=== PATIENT | female | born 1995 | race Caucasian/White ===

== ENCOUNTER 2020-10-25 17:53 | Emergency (ER) | payer BC ==
[2020-10-25 17:57] VITALS: TEMP 98.7
[2020-10-25 18:32] LABS: Appearance,Urine Clear (Clear); Bacteria,Urine Many /hpf; Bilirubin,Urine Negative (Negative); Blood,Urine Large (Negative); Color,Urine Colorless; Glucose,Urine (UA) Negative (Negative); Ketones,Urine Negative (Negative); Leukocyte Esterase,Urine Negative (Negative); Nitrite,Urine Negative (Negative); PH, Urine 6.5 (5.0-8.0); Protein,Urine Negative (Negative); RBC,Urine 2 /hpf (0-5); Specific Gravity,Urine 1.002 (1.001-1.035); Squamous Epithelial Cell,Urine 1 /hpf (0-4); Urobilinogen,Urine <2.0 mg/dL (<2.0); WBC,Urine 1 /hpf (0-5)
[2020-10-25 18:38] LABS: Basophils % (A) 0 %; Eosinophils # (A) 0.1 k/uL (0-0.7); Eosinophils % (A) 1 %; HCT 39.1 % (34.0-46.0); HGB 13.1 gm/dL (11.4-16.0); Lymphocytes # (A) 2.2 k/uL (1.0-4.8); Lymphocytes % (A) 22 %; MCH 29.1 pg (25.0-35.0); MCHC 33.4 g/dL (31.0-37.0); MCV 86.9 fL (80.0-100.0); Mean Platelet Volume 6.8; Monocytes # (A) 0.3 k/uL (0-1.0); Monocytes % (A) 3 %; Neutrophils # (A) 7.4 k/uL (1.3-7.7); Neutrophils % (A) 73 %; Platelet Count 352 k/uL (150-450); WBC 10.1 k/uL (3.8-10.6)
[2020-10-25 18:47] LABS: ALT 14 U/L (4-34); AST 21 U/L (14-36); African American GFR (CKD) >90 (>60 ml/min/1.73 sqM); Albumin 4.6 g/dL (3.5-5.0); Alkaline Phosphatase 80 U/L (38-126); Anion Gap 9 mmol/L; Blood Urea Nitrogen 7 mg/dL (7-17); Calcium 10.1 mg/dL (8.4-10.2); Carbon Dioxide 24 mmol/L (22-30); Chloride 104 mmol/L (98-107); Glucose 124 mg/dL (74-99); Non-African American GFR(CKD) >90 (>60 ml/min/1.73 sqM); Potassium 3.5 mmol/L (3.5-5.1); Sodium 137 mmol/L (137-145); Total Bilirubin 0.3 mg/dL (0.2-1.3); Total Protein 7.6 g/dL (6.3-8.2)
--- NOTE | 2020-10-25 19:25 | ED ---
Female Urogenital HPI - General Chief complaint: Vaginal Bleeding Stated complaint: 8wks preg, bleeding Time Seen by Provider: 10/25/20 18:01 Source: patient Mode of arrival: ambulatory Limitations: no limitations - History of Present Illness Initial comments: Patient is a 25-year-old female presenting to the emergency Department with complaints of vaginal bleeding that started today while she was at work. She states she went to the restroom before leaving work and noticed blood on a panty liner, when she went home she states the pain on her was full. Patient states she put on a pad, called her TECHNICAL SPEC who recommended coming into the ER. This is patient's first . She denies any abdominal pain, some very mild nausea but no vomiting or diarrhea, no fevers or chills. She denies history of abdominal surgeries. Her TECHNICAL SPEC is Dr. Garcia. Patient has no further complaints at this time. - Related Data Allergies Allergy/AdvReac Type Severity Reaction Status Date / Time No Known Allergies Allergy Verified 10/25/20 17:57 Review of Systems ROS Statement: Those systems with pertinent positive or pertinent negative responses have been documented in the HPI. ROS Other: All systems not noted in ROS Statement are negative. Past Medical History Past Medical History: No Reported History History of Any Multi-Drug Resistant Organisms: None Reported Past Surgical History: Cholecystectomy Past Psychological History: No Psychological Hx Reported Smoking Status: Never smoker Past Alcohol Use History: None Reported Past Drug Use History: None Reported General Exam - General Exam Comments Initial Comments: GENERAL: Patient is well-developed and well-nourished. Patient is nontoxic and in no acute distress. HEAD: Atraumatic, normocephalic. EYES: Pupils equal round and reactive to light, extraocular movements intact, sclera anicteric, conjunctiva are normal. Eyelids were unremarkable. ENT: TMs normal, nares patent, oropharynx clear without exudates. Moist mucous membranes. NECK: Normal range of motion, supple without lymphadenopathy or JVD. LUNGS: Unlabored respirations. Breath sounds clear to auscultation bilaterally and equal. No wheezes rales or rhonchi. HEART: Regular rate and rhythm without murmurs, rubs or gallops. ABDOMEN: Soft, nontender, normoactive bowel sounds. No guarding, no rebound. No masses appreciated. MUSCULOSKELETAL: Normal extremities with adequate strength and normal range of motion, no pitting or edema. No clubbing or cyanosis. NEUROLOGICAL: Patient is alert and oriented x 3. Motor and sensory are also intact. Cranial nerves II through XII grossly intact. Symmetrical smile. Normal speech, normal gait. PSYCH: Normal mood, normal affect. SKIN: Warm, Dry, normal turgor, no rashes or lesions noted. Limitations: no limitations External exam: Present: normal external exam Speculum exam: Present: vaginal bleeding (mild) By manual exam: Present: normal by manual exam Course Vital Signs 10/25/20 10/25/20 10/25/20 17:55 19:29 21:09 Temperature 98.7 F 98.7 F Pulse Rate 126 H 96 96 Respiratory 20 18 18 Rate Blood Pressure 120/73 114/67 114/67 O2 Sat by Pulse 97 100 100 Oximetry Medical Decision Making - Medical Decision Making Patient is a 25-year-old female here currently 8 weeks , presenting for vaginal bleeding that started this morning. Her TECHNICAL SPEC is Dr. Garcia. This is her first . She has no abdominal pain. Labs are normal, hCG Quant is 125,000. Ultrasound today shows a single live IUP with estimated age of 7 weeks and 2 days, heart rate is 142. There are 2 small subchorionic bleed adjacent to the gestational sac. Patient's blood type is O+. I discussed these findings with the patient. She is stable for discharge. She does have a follow-up with her TECHNICAL SPEC's office tomorrow. Return parameters were discussed with the patient she verbalized understanding. Case discussed with Dr. Loredo. - Lab Data Result diagrams: 10/25/20 18:22 10/25/20 18:22 Lab Results 10/25/20 10/25/20 10/25/20 Range/Units 18:22 18:22 18: WBC 10.1 (3.8-10.6) k/uL RBC 4.50 (3.80-5.40) m/uL Hgb 13.1 (11.4-16.0) gm/dL Hct 39.1 (34.0-46.0) % MCV 86.9 (80.0-100.0) fL MCH 29.1 (25.0-35.0) pg MCHC 33.4 (31.0-37.0) g/dL RDW 13.0 (11.5-15.5) % Plt Count 352 (150-450) k/uL MPV 6.8 Neutrophils % 73 % Lymphocytes % 22 % Monocytes % 3 % Eosinophils % 1 % Basophils % 0 % Neutrophils # 7.4 (1.3-7.7) k/uL Lymphocytes # 2.2 (1.0-4.8) k/uL Monocytes # 0.3 (0-1.0) k/uL Eosinophils # 0.1 (0-0.7) k/uL Basophils # 0.0 (0-0.2) k/uL Sodium 137 (137-145) mmol/L Potassium 3.5 (3.5-5.1) mmol/L Chloride 104 (98-107) mmol/L Carbon Dioxide 24 (22-30) mmol/L Anion Gap 9 mmol/L BUN 7 (7-17) mg/dL Creatinine 0.50 L (0.52-1.04) mg/dL Est GFR (CKD-EPI)AfAm >90 (>60 ml/min/1.73 sqM) Est GFR (CKD-EPI)NonAf >90 (>60 ml/min/1.73 sqM) Glucose 124 H (74-99) mg/dL Calcium 10.1 (8.4-10.2) mg/dL Total Bilirubin 0.3 (0.2-1.3) mg/dL AST 21 (14-36) U/L ALT 14 (4-34) U/L Alkaline Phosphatase 80 (38-126) U/L Total Protein 7.6 (6.3-8.2) g/dL Albumin 4.6 (3.5-5.0) g/dL HCG, Quant 077284.0 mIU/mL Urine Color Colorless Urine Appearance Clear (Clear) Urine pH 6.5 (5.0-8.0) Ur Specific [place] 1.002 (1.001-1.035) Urine Protein Negative (Negative) Urine Glucose (UA) Negative (Negative) Urine Ketones Negative (Negative) Urine Blood Large H (Negative) Urine Nitrite Negative (Negative) Urine Bilirubin Negative (Negative) Urine Urobilinogen <2.0 (<2.0) mg/dL Ur Leukocyte Esterase Negative (Negative) Urine RBC 2 (0-5) /hpf Urine WBC 1 (0-5) /hpf Ur Squamous Epith Cells 1 (0-4) /hpf Urine Bacteria Many H (None) /hpf Blood Type Blood Type Recheck Bld Type Recheck Status 10/25/20 Range/Units 18:22 WBC (3.8-10.6) k/uL RBC (3.80-5.40) m/uL Hgb (11.4-16.0) gm/dL Hct (34.0-46.0) % MCV (80.0-100.0) fL MCH (25.0-35.0) pg MCHC (31.0-37.0) g/dL RDW (11.5-15.5) % Plt Count (150-450) k/uL MPV Neutrophils % % Lymphocytes % % Monocytes % % Eosinophils % % Basophils % % Neutrophils # (1.3-7.7) k/uL Lymphocytes # (1.0-4.8) k/uL Monocytes # (0-1.0) k/uL Eosinophils # (0-0.7) k/uL Basophils # (0-0.2) k/uL Sodium (137-145) mmol/L Potassium (3.5-5.1) mmol/L Chloride (98-107) mmol/L Carbon Dioxide (22-30) mmol/L Anion Gap mmol/L BUN (7-17) mg/dL Creatinine (0.52-1.04) mg/dL Est GFR (CKD-EPI)AfAm (>60 ml/min/1.73 sqM) Est GFR (CKD-EPI)NonAf (>60 ml/min/1.73 sqM) Glucose (74-99) mg/dL Calcium (8.4-10.2) mg/dL Total Bilirubin (0.2-1.3) mg/dL AST (14-36) U/L ALT (4-34) U/L Alkaline Phosphatase (38-126) U/L Total Protein (6.3-8.2) g/dL Albumin (3.5-5.0) g/dL HCG, Quant mIU/mL Urine Color Urine Appearance (Clear) Urine pH (5.0-8.0) Ur Specific [place] (1.001-1.035) Urine Protein (Negative) Urine Glucose (UA) (Negative) Urine Ketones (Negative) Urine Blood (Negative) Urine Nitrite (Negative) Urine Bilirubin (Negative) Urine Urobilinogen (<2.0) mg/dL Ur Leukocyte Esterase (Negative) Urine RBC (0-5) /hpf Urine WBC (0-5) /hpf Ur Squamous Epith Cells (0-4) /hpf Urine Bacteria (None) /hpf Blood Type O Positive Blood Type Recheck No Previous Record Bld Type Recheck Status [facility] ONLY Disposition Clinical Impression: Vaginal bleeding during , Subchorionic hemorrhage in first trimester Disposition: HOME SELF-CARE Condition: Stable Instructions (If sedation given, give patient instructions): Subchorionic Hemorrhage (ED) Additional Instructions: Please return to the Emergency Department if symptoms worsen or any other concerns. Follow-up with your TECHNICAL SPEC as discussed. Is patient prescribed a controlled substance at d/c from ED?: No Referrals: Yulia Sin MD [Primary Care Provider] - 1-2 days Nathalia Garcia MD [STAFF PHYSICIAN] - 1-2 days Time of Disposition: 20:48
[2020-10-25 19:32] VITALS: BP 114/67; PULSE 96; RESP 18
--- NOTE | 2020-10-25 19:56 | US ---
EXAMINATION TYPE: Transabdominal DATE OF EXAM: 10/25/2020 7:31 PM COMPARISON: NONE CLINICAL HISTORY: vaginal bleeding, 8 wks preg. Vaginal bleeding x 4.5 hours. . EXAM PERFORMED: Transvaginal (TV) and Transabdominal (TA) EXAM MEASUREMENTS: GESTATIONAL AGE / DATING Physician Established: Not yet established. Dates by LMP: ( 7 weeks/4 days) EDC: 06/09/2021 Dates by First Scan: This is first scan. Dates by Current Scan for: (7 weeks/2 days) EDC: 06/11/2021 MATERNAL ANATOMY Uterus: 8.3 x 7.7 x 4.9 cm. Subcentimeter anechoic areas seen in cervix. Right Ovary: 3.6 x 2.0 x 1.8 cm. Left Ovary: 3.8 x 2.3 x 2.0 cm. Area of mixed echogenicity and peripheral vascularity seen: 2.3 x 1.9 x 1.7, may relate to corpus luteal cyst Post CDS / Adnexa: Anechoic area seen adjacent to or connected to the right ovary: 1.2 x 1.0 x 1.2 cm . Presence of free fluid: None seen. Presence of corpus luteal cyst: Probable within the left ovary as mentioned above. Presence of subchorionic bleed: -Two heterogeneous, hypoechoic areas measured right of the gestational sac. #1 measures: 2.3 x 1.5 x 2.1 cm. #2 measures: 0.9 x 0.7 x 0.8 cm. -Hypoechoic area seen more inferior, adjacent to the gestational sac: 1.5 x 0.4 x 0.4 cm. GESTATION / SURVEY CRL: 0.78 cm. (6 weeks/5 days) MSD: 3.00 cm. (7 weeks/6 days) Yolk Sac (normal less than 6mm): 3.1 mm. Heart Rate: 142 bpm Rhythm: Normal IUP: Viable IUP Date of LMP: 09/02/2020 Beta HcG (if available): Not available. *CRL measures 6w 5d, MSD measures 7w 6d. IMPRESSION: Single live intrauterine with estimated age of approximately 7 weeks 2 days. Small hypoechoic areas adjacent to the gestational sac, consistent with subchorionic hemorrhage.
== END 2020-10-25 21:10 | disposition home or self-care (01) ==
LOC: EC 17:53 → MERGE 17:53 → EC 21:10
DX: O20.8 Other hemorrhage in early pregnancy (principal); Z3A.08 8 weeks gestation of pregnancy; Z90.721 Acquired absence of ovaries, unilateral
CPT/HCPCS: 36415; 76801; 76817; 80053; 81001; 84702; 85025; 86900; 86901; 99284

== ENCOUNTER 2020-11-10 06:09 | Day surgery (SDC) | payer BC ==
[2020-11-09 11:26] VITALS: BMI 22.0
--- NOTE | 2020-11-09 16:35 | HP ---
HISTORY AND PHYSICAL DATE OF PROCEDURE: 11/10/2020. HISTORY: This is 25-year-old 1, para 0 woman with an LMP of 09/02/2020. She was found on recent pelvic ultrasound to have an intrauterine with no heart tones. She has had some episodes of bleeding and spotting and was previously diagnosed with a subchorionic bleed. She is scheduled to undergo suction dilation and curettage. ALLERGIES: None. MEDICATIONS: vitamin. PAST MEDICAL HISTORY: Migraine headaches. PAST SURGICAL HISTORY: Cholecystectomy 2017. 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 No history of abnormal Pap smears or STDs. FAMILY HISTORY: Significant for breast cancer in the grandmother. SOCIAL HISTORY: Negative for tobacco, alcohol, and drug use. She is . REVIEW OF SYSTEMS: Negative for fevers, chills, nausea, vomiting, abdominal pain, rash, headache, or visual changes. PHYSICAL EXAMINATION: Blood pressure 112/66, pulse 91, weight 145 pounds, height 5 feet 6 inches. Pelvic examination is deferred secondary to recent transvaginal ultrasound. This is a pleasant female in no acute distress. HEENT exam is unremarkable. Her breathing is nonlabored and lungs are clear to auscultation. Heart is of regular rate and rhythm. Abdomen is slim, soft and nontender. There is no rebound, no guarding and no flank pain. Pelvic exam is deferred. Neurologic exam is grossly intact. Mood and affect normal. ASSESSMENT: A 25-year-old 1, para 0 woman with LMP of 09/02/2020, who should be 9 weeks 4 days by dates to have a crown-rump length of 8 weeks 3 days with no heart tones consistent with missed . She is scheduled for suction dilation and curettage. The procedure has been reviewed with the patient in detail including anticipated hospital course and recovery time. Risks include, but are not limited to bleeding, infection, transfusion, uterine injury, retained products. Her blood type is pending. MMODL / IJN: [id number] /
[~2020-11-10 06:09] MED LIST: DEXAMETHASONE SOD PHOSPHATE 4 MG/ML 1 ML VIAL IV ONE; LACTATED RINGERS 1,000 ML IV SCH; MIDAZOLAM 2 MG/2 ML VIAL IV PRN; ONDANSETRON 4 MG/2 ML VIAL IVP ONE; Pre Op ABX Message 1 EACH MISC MISCELLANE ONE; SCOPOLAMINE 1.5MG/72HR PATCH TRANSDERM ONE
[2020-11-10] MEDS ORDERED: LIDOCAINE 1% (10MG/ML) FOR IV START INTRADERMA ONE (07:00)
[2020-11-10 07:04] LABS: HCT 37.7 % (34.0-46.0); HGB 13.5 gm/dL (11.4-16.0); MCHC 35.7 g/dL (31.0-37.0); MCV 86.7 fL (80.0-100.0); Mean Platelet Volume 6.9; Platelet Count 333 k/uL (150-450); RBC 4.35 m/uL (3.80-5.40); RDW 12.3 % (11.5-15.5); WBC 7.3 k/uL (3.8-10.6)
[2020-11-10] MEDS ORDERED: KETOROLAC 15 MG/ML 1 ML VIAL ONE (07:29)
[2020-11-10] MEDS ORDERED: PROPOFOL 10 MG/ML 20 ML VIAL IV ONE (07:29)
[2020-11-10] MEDS ORDERED: ONDANSETRON 4 MG/2 ML VIAL ONE (07:29)
[2020-11-10] MEDS ORDERED: MIDAZOLAM 2 MG/2 ML VIAL ONE (07:29)
[2020-11-10] MEDS ORDERED: LIDOCAINE 1% INJ 10MG/ML (20 ML MDV) ONE (07:29)
[2020-11-10] MEDS ORDERED: ePHEDrine SULFATE/0.9% NACL/PF 50 MG/5 ML SYRINGE IV ONE (07:29)
[2020-11-10] MEDS ORDERED: fentaNYL (PF) 50 MCG/ML 2 ML AMP ONE (07:29)
[2020-11-10] MEDS ORDERED: LIDOCAINE 1%-EPI 1:100,000 20 ML VIAL SQ ONE ×2 (07:47)
[2020-11-10] MEDS ORDERED: LACTATED RINGERS 1,000 ML IV ONE (08:34)
[2020-11-10 08:48] VITALS: TEMP 97
--- NOTE | 2020-11-10 08:48 | P.OP ---
Date of Procedure: 11/10/20 Preoperative Diagnosis: Missed Postoperative Diagnosis: Same Procedure(s) Performed: Ultrasound guided suction dilation and curettage Anesthesia: MAC Surgeon: Nathalia Garcia Estimated Blood Loss (ml): 50 IV fluids (ml): 1,000 Urine output (ml): 10 Pathology: other (Uterine contents) Condition: stable Disposition: PACU Indications for Procedure: Missed at approximately 8 weeks gestation Operative Findings: Small and stenotic cervix, severely anteverted uterus. Description of Procedure: After the patient was met in the preoperative holding area and all questions were answered, she was taken to the operating room where anesthetic was administered without incident. Appropriate timeout procedure was undertaken. Blood type O positive. The patient was positioned, prepped and draped in the dorsal high lithotomy position. The bladder was drained for a scant amount of clear urine. Exam under anesthetic was performed and the uterus was noted to be in the midline enlarged to approximately 8 weeks size. Weighted speculum was placed in the vagina and the cervix was noted to be very small and nulliparous in appearance. The cervix was not dilated. The cervix was grasped anteriorly with a single-tooth tenaculum and the uterus was not able to be sounded secondary to cervical stenosis. Very carefully using the smallest Amandeep Goff dilators the cervix is attempted to be dilated. Significant resistance was met at what I felt to be the internal os. On multiple careful efforts it did not feel as though the apices to proceed without further visualization. The shunt was contacted and conference center manager came to the bedside. Under direct ultrasound guidance the uterus was noted to be severely anteverted. It was not clear where the cervical canal was. The bladder was then backfilled with approximately 100 mL of sterile saline. This allowed visual and better visualization of the track of the cervical canal. Under direct visualization then the cervix was able to be sequentially dilated with confirmation of placement. The 8 curved banjo curet was then introduced again under direct ultrasound visualization and the uterus was circumferentially curettaged. Appropriate amount of tissue was obtained. The suction curet was removed and under direct visualization the sharp banjo curette was introduced and the uterus was further curettaged of the remaining tissue. The instruments were then removed from the uterus. The cervix was observed and no active bleeding was noted. Instruments removed from the vagina. Patient was awoken from anesthetic without incident. All counts reported to me as correct by the operating room staff. Patient was transported recovery area in good condition.
[2020-11-10 09:54] VITALS: BP 119/69; PULSE 99; RESP 18
--- NOTE | 2020-11-10 14:34 | US ---
EXAMINATION TYPE: US pelvic limited DATE OF EXAM: 11/10/2020 COMPARISON: 10/25/2020 CLINICAL HISTORY: POSSIBLE retained products of conception TECHNIQUE: Transabdominal (TA). Impression: Ultrasound was requested in OR to help physician guide instruments to complete D & C. [place] l time imaging was used with Dr Garcia present.
== END 2020-11-10 10:19 | disposition home or self-care (01) ==
LOC: OR 06:09
PROVIDERS: ATTEND Obstetrics & Gynecology
DX: O02.1 Missed abortion (principal); Z90.49 Acquired absence of other specified parts of digestive tract; Z80.3 Family history of malignant neoplasm of breast; G43.909 Migraine, unspecified, not intractable, without status migrainosus; Z79.899 Other long term (current) drug therapy
CPT/HCPCS: 86900; 86901; 88305; 85027; 86850; 59820; J2250; J1100; J2405; J2001; J3010; J1885; J2704; 76857

== ENCOUNTER 2020-12-07 19:13 | Emergency (ER) | payer BC ==
[2020-12-07] MEDS ORDERED: KETOROLAC 15 MG/ML 1 ML VIAL IVP STA (20:20)
[2020-12-07 20:27] VITALS: RESP 18
[2020-12-07 20:57] LABS: Basophils # (A) 0.1 k/uL (0-0.2); Basophils % (A) 1 %; Eosinophils # (A) 0.1 k/uL (0-0.7); Eosinophils % (A) 2 %; HCT 39.3 % (34.0-46.0); HGB 13.2 gm/dL (11.4-16.0); Lymphocytes # (A) 2.3 k/uL (1.0-4.8); Lymphocytes % (A) 29 %; MCH 29.8 pg (25.0-35.0); MCHC 33.7 g/dL (31.0-37.0); MCV 88.3 fL (80.0-100.0); Monocytes # (A) 0.4 k/uL (0-1.0); Monocytes % (A) 5 %; Neutrophils # (A) 4.9 k/uL (1.3-7.7); Neutrophils % (A) 62 %; Platelet Count 411 k/uL (150-450); RBC 4.45 m/uL (3.80-5.40); RDW 12.7 % (11.5-15.5); WBC 7.9 k/uL (3.8-10.6)
[2020-12-07 20:59] LABS: Appearance,Urine Clear (Clear); Bilirubin,Urine Negative (Negative); Blood,Urine Negative (Negative); Color,Urine Light Yellow; Glucose,Urine (UA) Negative (Negative); Ketones,Urine Negative (Negative); Leukocyte Esterase,Urine Negative (Negative); Nitrite,Urine Negative (Negative); PH, Urine 6.5 (5.0-8.0); Protein,Urine Negative (Negative); Specific Gravity,Urine 1.005 (1.001-1.035); Urobilinogen,Urine <2.0 mg/dL (<2.0)
[2020-12-07 21:07] LABS: Glucose 87 mg/dL (74-99)
[2020-12-07 21:09] LABS: ALT 28 U/L (4-34); AST 28 U/L (14-36); African American GFR (CKD) >90 (>60 ml/min/1.73 sqM); Albumin 4.5 g/dL (3.5-5.0); Alkaline Phosphatase 87 U/L (38-126); Blood Urea Nitrogen 9 mg/dL (7-17); Calcium 9.7 mg/dL (8.4-10.2); Carbon Dioxide 28 mmol/L (22-30); Non-African American GFR(CKD) >90 (>60 ml/min/1.73 sqM); Potassium 3.6 mmol/L (3.5-5.1); Sodium 139 mmol/L (137-145); Total Bilirubin 0.5 mg/dL (0.2-1.3); Total Protein 7.4 g/dL (6.3-8.2)
--- NOTE | 2020-12-07 21:12 | ED ---
Abdominal Pain HPI - General Chief Complaint: Abdominal Pain Stated Complaint: right side pelvic pain Time Seen by Provider: 12/07/20 20:04 Source: patient Mode of arrival: ambulatory - History of Present Illness Initial Comments: Patient is a healthy 25-year-old female presenting to the emergency Department with complaints of 2 days of severe right lower pelvic pain. Patient had a D&C performed 4 weeks ago, has been recovering well. She states her bleeding stopped 2 weeks ago. 4 days ago she had about 2-3 hours worth of severe right lower pelvic pain, cause her to double over, have extreme nausea and she was not able to do anything else. She states it did end up subsiding after using a heat pack. Patient states the next 3 days she had no symptoms until today. The same thing happened when she was sitting after dinner, had an extreme bout of right lower pelvic pain, is persisting for about 3 hours so she came in for evaluation. Patient denies any fevers or chills, she's been eating and drinking as normal throughout this past 4 days. She has not had any additional vaginal bleeding. She admits a history of cholecystectomy, and no other abdominal surgeries. She states her PAYROLL EXAMINER has been monitoring her hCG levels, this checked a few weeks ago and was still about 190 she thought. She denies any chest pain or short of breath, no dysuria. She has no further complaints at this time. Her vital signs are stable upon arrival. - Related Data Home Medications Medication Instructions Recorded Confirmed Pnv No.95/Ferrous Fum/Folic AC 1 each PO DAILY 11/09/20 11/10/20 [ Multivitamin Tablet] Allergies Allergy/AdvReac Type Severity Reaction Status Date / Time No Known Allergies Allergy Verified 12/07/20 19:42 Review of Systems ROS Statement: Those systems with pertinent positive or pertinent negative responses have been documented in the HPI. ROS Other: All systems not noted in ROS Statement are negative. Past Medical History Past Medical History: No Reported History Additional Past Medical History / Comment(s): missed AB History of Any Multi-Drug Resistant Organisms: None Reported Past Surgical History: Cholecystectomy Past Anesthesia/Blood Transfusion Reactions: Previous Problems w/ Anesthesia Additional Past Anesthesia/Blood Transfusion Reaction / Comment(s): hard time waking up Past Psychological History: No Psychological Hx Reported Smoking Status: Never smoker Past Alcohol Use History: Occasional Past Drug Use History: None Reported - Past Family History Mother Family Medical History: Unable to Obtain Additional Family Medical History / Comment(s): patient adopted General Exam - General Exam Comments Initial Comments: GENERAL: Patient is well-developed and well-nourished. Patient is nontoxic and in no acute distress. HEAD: Atraumatic, normocephalic. EYES: Pupils equal round and reactive to light, extraocular movements intact, sclera anicteric, conjunctiva are normal. Eyelids were unremarkable. ENT: TMs normal, nares patent, oropharynx clear without exudates. Moist mucous membranes. NECK: Normal range of motion, supple without lymphadenopathy or JVD. LUNGS: Unlabored respirations. Breath sounds clear to auscultation bilaterally and equal. No wheezes rales or rhonchi. HEART: Regular rate and rhythm without murmurs, rubs or gallops. ABDOMEN: Soft, tender to palpation of the right lower pelvic area, normoactive bowel sounds. No guarding, no rebound. No masses appreciated. : Deferred MUSCULOSKELETAL: Normal extremities with adequate strength and normal range of motion, no pitting or edema. No clubbing or cyanosis. NEUROLOGICAL: Patient is alert and oriented x 3. Motor and sensory are also intact. Cranial nerves II through XII grossly intact. Symmetrical smile. Normal speech, normal gait. PSYCH: Normal mood, normal affect. SKIN: Warm, Dry, normal turgor, no rashes or lesions noted. Course Vital Signs 12/07/20 12/07/20 12/07/20 19:37 20:17 22:20 Temperature 97.9 F 97.7 F Pulse Rate 96 91 76 Respiratory 15 18 18 Rate Blood Pressure 126/81 136/87 98/65 O2 Sat by Pulse 99 99 99 Oximetry Medical Decision Making - Medical Decision Making Patient is a 25-year-old female here for severe right lower pelvic pain that happened twice for the past 4 days. She had a D&C performed 4 weeks ago, she has had no vaginal bleeding for the last 2 weeks. She's been eating and drinking as normal. Her vital signs are stable today. She is tender of the right lower pelvic region. Labs revealed no acute process, beta hCG is 36.4 which is down from her last check. Ultrasound reveals a 2.5 cm mass in the uterus is probably a fibroid, tiny amount of free fluid in the pelvis, no evidence of ovarian torsion, irregular right ovarian cyst. Patient has been symptom free after some Toradol. She's been resting currently. Discussed these findings with the patient. I believe her symptoms could be from a small right ovarian cyst. I recommended following up with her PAYROLL EXAMINER tomorrow. She is stable for discharge and she is in agreement with this plan of care. Return parameters were discussed with this patient and she verbalized understanding. Case discussed with Dr. Loredo. - Lab Data Result diagrams: 12/07/20 20:46 12/07/20 20:46 Lab Results 12/07/20 12/07/20 12/07/20 Range/Units 20:46 20:46 20:46 WBC 7.9 (3.8-10.6) k/uL RBC 4.45 (3.80-5.40) m/uL Hgb 13.2 (11.4-16.0) gm/dL Hct 39.3 (34.0-46.0) % MCV 88.3 (80.0-100.0) fL MCH 29.8 (25.0-35.0) pg MCHC 33.7 (31.0-37.0) g/dL RDW 12.7 (11.5-15.5) % Plt Count 411 (150-450) k/uL MPV 7.0 Neutrophils % 62 % Lymphocytes % 29 % Monocytes % 5 % Eosinophils % 2 % Basophils % 1 % Neutrophils # 4.9 (1.3-7.7) k/uL Lymphocytes # 2.3 (1.0-4.8) k/uL Monocytes # 0.4 (0-1.0) k/uL Eosinophils # 0.1 (0-0.7) k/uL Basophils # 0.1 (0-0.2) k/uL Sodium 139 (137-145) mmol/L Potassium 3.6 (3.5-5.1) mmol/L Chloride 102 (98-107) mmol/L Carbon Dioxide 28 (22-30) mmol/L Anion Gap 9 mmol/L BUN 9 (7-17) mg/dL Creatinine 0.57 (0.52-1.04) mg/dL Est GFR (CKD-EPI)AfAm >90 (>60 ml/min/1.73 sqM) Est GFR (CKD-EPI)NonAf >90 (>60 ml/min/1.73 sqM) Glucose 87 (74-99) mg/dL Plasma Lactic Acid Jason (0.7-2.0) mmol/L Calcium 9.7 (8.4-10.2) mg/dL Total Bilirubin 0.5 (0.2-1.3) mg/dL AST 28 (14-36) U/L ALT 28 (4-34) U/L Alkaline Phosphatase 87 (38-126) U/L Total Protein 7.4 (6.3-8.2) g/dL Albumin 4.5 (3.5-5.0) g/dL HCG, Quant 36.5 mIU/mL Urine Color Light Yellow Urine Appearance Clear (Clear) Urine pH 6.5 (5.0-8.0) Ur Specific [place] 1.005 (1.001-1.035) Urine Protein Negative (Negative) Urine Glucose (UA) Negative (Negative) Urine Ketones Negative (Negative) Urine Blood Negative (Negative) Urine Nitrite Negative (Negative) Urine Bilirubin Negative (Negative) Urine Urobilinogen <2.0 (<2.0) mg/dL Ur Leukocyte Esterase Negative (Negative) 12/07/20 Range/Units 20:46 WBC (3.8-10.6) k/uL RBC (3.80-5.40) m/uL Hgb (11.4-16.0) gm/dL Hct (34.0-46.0) % MCV (80.0-100.0) fL MCH (25.0-35.0) pg MCHC (31.0-37.0) g/dL RDW (11.5-15.5) % Plt Count (150-450) k/uL MPV Neutrophils % % Lymphocytes % % Monocytes % % Eosinophils % % Basophils % % Neutrophils # (1.3-7.7) k/uL Lymphocytes # (1.0-4.8) k/uL Monocytes # (0-1.0) k/uL Eosinophils # (0-0.7) k/uL Basophils # (0-0.2) k/uL Sodium (137-145) mmol/L Potassium (3.5-5.1) mmol/L Chloride (98-107) mmol/L Carbon Dioxide (22-30) mmol/L Anion Gap mmol/L BUN (7-17) mg/dL Creatinine (0.52-1.04) mg/dL Est GFR (CKD-EPI)AfAm (>60 ml/min/1.73 sqM) Est GFR (CKD-EPI)NonAf (>60 ml/min/1.73 sqM) Glucose (74-99) mg/dL Plasma Lactic Acid Jason 1.2 (0.7-2.0) mmol/L Calcium (8.4-10.2) mg/dL Total Bilirubin (0.2-1.3) mg/dL AST (14-36) U/L ALT (4-34) U/L Alkaline Phosphatase (38-126) U/L Total Protein (6.3-8.2) g/dL Albumin (3.5-5.0) g/dL HCG, Quant mIU/mL Urine Color Urine Appearance (Clear) Urine pH (5.0-8.0) Ur Specific [place] (1.001-1.035) Urine Protein (Negative) Urine Glucose (UA) (Negative) Urine Ketones (Negative) Urine Blood (Negative) Urine Nitrite (Negative) Urine Bilirubin (Negative) Urine Urobilinogen (<2.0) mg/dL Ur Leukocyte Esterase (Negative) Disposition Clinical Impression: Right ovarian cyst, Pelvic pain Disposition: HOME SELF-CARE Condition: Stable Instructions (If sedation given, give patient instructions): Ovarian Cyst (ED) Additional Instructions: Please return to the Emergency Department if symptoms worsen or any other concerns. Recommend alternating between Tylenol and ibuprofen for discomfort. Please follow up with your PAYROLL EXAMINER as discussed. Is patient prescribed a controlled substance at d/c from ED?: No Referrals: Yulia Sin MD [Primary Care Provider] - 1-2 days Nathalia Garcia MD [STAFF PHYSICIAN] - 1-2 days Time of Disposition: 22:44
[2020-12-07 21:15] LABS: Anion Gap 9 mmol/L; Chloride 102 mmol/L (98-107)
[2020-12-07 21:24] LABS: HCG,Quantitative Serum 36.5 mIU/mL
--- NOTE | 2020-12-07 22:15 | US ---
EXAMINATION TYPE: US transvaginal DATE OF EXAM: 12/07/2020 COMPARISON: US CLINICAL HISTORY: Severe right lower pelvic pain. Severe lower pelvic pain x 4 days. Hx D&C 11/10/2020 . . TECHNIQUE: Transvaginal (TV). Date of LMP: 09/02/2020 EXAM MEASUREMENTS: Uterus: 8.3 x 7.1 x 3.4 cm Endometrial Stripe: 0.3 cm Right Ovary: 4.4 x 3.1 x 2.4 cm Left Ovary: 2.8 x 2.1 x 1.6 cm 1. Uterus: Anteverted Heterogeneous area seen toward the left: 3.0 x 2.2 x 1.5 cm. This could be wi thin the endometrium? Septated anechoic area seen in cervix: 0.8 x 0.7 x 0.3 cm. 2. Endometrium: 0.3 cm. 3. Right Ovary: Area of mixed echogenicity and peripheral vascularity seen: 3.0 x 2.0 x 1.9 cm. 4. Left Ovary: Follicles seen. -Arterial and venous flow seen within the ovaries. 5. Bilateral Adnexa: Anechoic area seen in right adnexa between right ovary and uterus: 2.0 x 1.2 x 1.1 cm. Free fluid seen in the left adnexa: 1.7 x 1.6 x 0.6 cm. 6. Posterior cul-de-sac: Appears to be wnl. IMPRESSION: 2.5 cm mass that is somewhat echogenic in the uterus that is probably a fibroid. Tiny amount of free fluid in the pelvis. No evidence of ovarian torsion. Irregular right ovarian cyst .
[2020-12-07 23:14] VITALS: BP 104/64; PULSE 70; TEMP 97.1
== END 2020-12-07 23:14 | disposition home or self-care (01) ==
LOC: EC 19:13
DX: N83.201 Unspecified ovarian cyst, right side (principal); Z90.49 Acquired absence of other specified parts of digestive tract
CPT/HCPCS: 96374 ×2; 99284 ×2; 36415; 80053; 83605; 85025; 81003; 84702; 93975; 76830; J1885

== ENCOUNTER 2021-08-08 21:23 | Outpatient (CLI) | payer BC ==
[2021-08-08 23:47] VITALS: BP 115/75; PULSE 92; RESP 16; TEMP 97.5
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
== END 2021-08-08 23:30 | disposition home or self-care (01) ==
LOC: FBPOP 21:23
PROVIDERS: ATTEND Obstetrics & Gynecology
DX: O9A.213 Injury, poisoning and certain other consequences of external causes complicating pregnancy, third trimester (principal); Z3A.30 30 weeks gestation of pregnancy; W00.0XXA Fall on same level due to ice and snow, initial encounter
CPT/HCPCS: 59025; 99213

== ENCOUNTER 2021-09-20 04:45 | Outpatient (CLI) | payer BC ==
[2021-09-20 06:27] VITALS: BP 126/83; PULSE 125; RESP 16; TEMP 97.3
--- NOTE | 2021-09-20 07:49 | P.MSEPDOC ---
Presenting Problems - Arrival Data Date of Arrival on Unit: 09/20/21 Time of Arrival on Unit: 04:45 Mode of Transport: Ambulatory - Complaint OB-Reason for Admission/Chief Complaint: Possible Onset of Labor Comment: pt. present to triage due to contractions that started at 1am, states. 5min apart, rating pain 6/10 Medical History - Information : 2 Para: 0 Term: 0 : 0 Abortions: Spontaneous or Elective: 1 Number of Living Children: 0 - Gestational Age Gestational Age by INDERJIT (wks/days): 36 Weeks and 4 Days - History Comment: Hx. of subchoronic hemorrage at 10 weeks and has resolved Review of Systems - Review of Systems Constitutional: No problems Breast: No problems ENT: No problems Cardiovascular: No problems Respiratory: No problems Gastrointestinal: No problems Genitourinary: No problems Musculoskeletal: No problems Neurological: No problems Skin: No problems Vital Signs - Temperature Temperature: 97.3 F Temperature Source: Temporal Artery Scan - Pulse Pulse Oximetery Pulse Rate: 125 Pulse Assessment Method: Automatic Cuff - Respirations Respiratory Rate: 16 Oxygen Delivery Method: Room Air O2 Sat by Pulse Oximetry: 99 - Blood Pressure Right Arm Blood Pressure: 126/83 Blood Pressure Mean: 97 Blood Pressure Source: Automatic Cuff Medical Screen Scoring - Cervical Exam Dilation (cm): 1.5 Effacement (%): 60 Station: -4 Membranes: Intact - Uterine Contractions Frequency From (mins): 3 Frequency To (mins): 60 Duration From (seconds): 40 Duration To (seconds): 50 Resting: Soft to palpation - Assessment - Baby A Baseline FHR: 135 Heart Rate - NICHD Category: Category I (Normal) NST: Reactive Physician Notification - Physician Notified Physician Notified Date: 09/20/21 Physician Notified Time: 06:04 Physician: Maryellen Luis Order Received: Yes - Notification Comment Comment: order to discharge patient home Maternal Triage Index - Maternal Triage Index Presenting for scheduled procedure w/no complaint: No - Stat/Priority 1 Stat Priority 1: No - Urgent/Priority 2 Urgent Priority 2: No - Prompt/Priority 3 Prompt Priority 3: Yes Criteria Met for Priority 3: pt. present to triage due to contractions that started at 1am, states. 5min apart, rating pain 6/10 Disposition - Disposition OB Disposition: Discharge to home Discharge Date: 09/20/21 Discharge Time: 06:12 I agree with the RN Medical Screening Exam: Yes Case reviewed; plan agreed upon as documented in EMR&OBIX.: Yes Diagnosis: FALSE LABOR BEFORE 37 COMPLETED WEEKS OF GEST, THIRD TRI
== END 2021-09-20 06:12 | disposition home or self-care (01) ==
LOC: FBPOP 04:45
PROVIDERS: ATTEND Obstetrics & Gynecology
DX: O47.03 False labor before 37 completed weeks of gestation, third trimester (principal); Z3A.36 36 weeks gestation of pregnancy
CPT/HCPCS: 59025; 99213

== ENCOUNTER 2021-09-22 01:15 | Inpatient (IN) | payer BC ==
[2021-09-22] MEDS ORDERED: TERBUTALINE 1 MG/ML VIAL SQ PRN (01:56)
[2021-09-22] MEDS ORDERED: LIDOCAINE 1% (PF) 10 MG/ML (30 ML SDV) SQ PRN (01:56)
[2021-09-22] MEDS ORDERED: METHYLERGONOVINE 0.2 MG/ML 1 ML AMP IM PRN (01:56)
[2021-09-22] MEDS ORDERED: OXYTOCIN 10 UNIT/ML 1 ML VIAL IM PRN (01:56)
[2021-09-22] MEDS ORDERED: CARBOPROST TROMETHAMINE 250 MCG/ML 1 ML AMP IM PRN (01:56)
[2021-09-22] MEDS ORDERED: LACTATED RINGERS 1,000 ML IV SCH (02:00)
[2021-09-22] MEDS ORDERED: OXYTOCIN 30 UNITS/500 ML NS 30 UNIT in SALINE 1 500ML.BAG IV SCH ×2 (02:00→03:00)
[2021-09-22 02:31] LABS: Basophils # (A) 0.1 k/uL (0-0.2); Basophils % (A) 0 %; Eosinophils % (A) 0 %; HCT 38.7 % (34.0-46.0); HGB 12.3 gm/dL (11.4-16.0); Lymphocytes # (A) 1.7 k/uL (1.0-4.8); Lymphocytes % (A) 9 %; MCH 28.8 pg (25.0-35.0); MCHC 31.8 g/dL (31.0-37.0); MCV 90.4 fL (80.0-100.0); Mean Platelet Volume 7.5; Monocytes # (A) 0.5 k/uL (0-1.0); Monocytes % (A) 3 %; Neutrophils # (A) 16.9 k/uL (1.3-7.7); Neutrophils % (A) 88 %; Platelet Count 501 k/uL (150-450); RBC 4.28 m/uL (3.80-5.40); RDW 12.9 % (11.5-15.5); WBC 19.2 k/uL (3.8-10.6)
[2021-09-22] MEDS ORDERED: diphenhydrAMINE 25 MG CAP PO PRN (02:48)
[2021-09-22] MEDS ORDERED: SIMETHICONE 80 MG CHEWABLE PO PRN (02:48)
[2021-09-22] MEDS ORDERED: HYDROCORTISONE 2.5% RECTAL CREAM 30 GM TUBE RECTAL PRN (02:48)
[2021-09-22] MEDS ORDERED: LANOLIN CREAM 5 GM TUBE TOPICAL PRN (02:48)
[2021-09-22] MEDS ORDERED: bisacodyL 10 MG SUPP RECTAL PRN (02:48)
[2021-09-22] MEDS ORDERED: BENZOCAINE/MENTHOL SPRAY 1 GM/SPRAY AEROSOL TOPICAL PRN (02:48)
[2021-09-22] MEDS ORDERED: ZOLPIDEM 5 MG TAB PO PRN (02:48)
[2021-09-22] MEDS ORDERED: diphenhydrAMINE 50 MG/ML 1 ML VIAL IVP PRN (02:48)
--- NOTE | 2021-09-22 02:53 | P.HPOB ---
History of Present Illness H&P Date: 09/22/21 Chief Complaint: Contractions This patient is a pleasant 26-year-old 2 para 0 female estimated date of confinement 10/14/2021 estimated gestational age 36-6/7 weeks who called me this evening complaints of contractions and apparently was here couple days ago similarly found out to be 9 cm dilated in active labor. care is per Dr. Luis.'s be complicated by first trimester bleeding. She'll large subchorionic hematoma that was 4.6 x 1.4 cm. This did resolve. otherwise is uncomplicated with the exception of the most recent ultrasound showing small for gestational age. Review of Systems Genitourinary: Reports Menstruation: Reports amenorrhea Past Medical History Past Medical History: No Reported History Additional Past Medical History / Comment(s): missed AB History of Any Multi-Drug Resistant Organisms: None Reported Past Surgical History: Cholecystectomy Past Anesthesia/Blood Transfusion Reactions: Previous Problems w/ Anesthesia Additional Past Anesthesia/Blood Transfusion Reaction / Comment(s): hard time waking up Past Psychological History: No Psychological Hx Reported Smoking Status: Never smoker Past Alcohol Use History: Occasional Past Drug Use History: None Reported - Past Family History Mother Family Medical History: Unable to Obtain Additional Family Medical History / Comment(s): patient adopted Medications and Allergies Home Medications Medication Instructions Recorded Confirmed Type Pnv No.95/Ferrous Fum/Folic AC 1 each PO DAILY 11/09/20 09/22/21 History [ Multivitamin Tablet] Allergies Allergy/AdvReac Type Severity Reaction Status Date / Time No Known Allergies Allergy Verified 09/22/21 01:23 Exam Vital Signs Temp Pulse Resp BP Pulse Ox 09/22/21 01:56 97.6 F 79 18 121/67 100 Intake and Output 09/21/21 09/21/21 09/22/21 14:59 22:59 06:59 Other: Weight 68.039 kg - OBG Physical Exam Vulva: both: normal Vagina: normal moisture, no discharge Cervix: no lesion (Patient is completely), no discharge Uterus: enlarged Results blood work shows she is O positive. Group B strep was negative. Most recent ultrasound showed estimated weight of 5 pounds. Result Diagrams: 09/22/21 02:09 Abnormal Lab Results - Last 24 Hours (Table) 09/22/21 Range/Units 02:09 WBC 19.2 H (3.8-10.6) k/uL Plt Count 501 H (150-450) k/uL Neutrophils # 16.9 H (1.3-7.7) k/uL Assessment and Plan Assessment: This is a pleasant 26-year-old 2 para 0 female 36-6/7 weeks gestation active labor and now delivered. Plan is routine care. (1) 36 to 37 weeks gestation of Current Visit: Yes Status: Acute Code(s): [id number] - SNOMED Code(s): 777613536 (2) Normal labor and delivery Current Visit: Yes Status: Acute Code(s): O80 - ENCOUNTER FOR FULL-TERM UNCOMPLICATED DELIVERY SNOMED Code(s): 97237418
--- NOTE | 2021-09-22 02:56 | P.PROBDLV ---
Vaginal Delivery Note - . Vaginal Delivery Note: Normal spontaneous vaginal delivery viable female Apgars 7 and 9 delivery time is 0216 hours. Please see dictated H&P for intimate details patient's admission. Brief summary this pleasant 26-year-old 2 para 0 female 36-6/7 weeks gestation admitted to labor and delivery with complaints of contractions patient does live in [place] and she states that her contractions started about 2 days ago became more intense this evening. On her drive to the hospital for water did break in [place]. On arrival patient is 9 cm dilated in active labor. Patient quickly gets to complete. This time she does have some bradycardia since she is encouraged to push. Patient pushes approximately 2 contractions and pushes the head to the perineum. Posterior perineum was supported we have controlled delivery of the infant's head over the intact p erineum. Mouth and nares are bulb suctioned. The infant's head is occiput anterior presentation. There is no evidence of a nuchal cord. The baby then spontaneously delivers the anterior posterior shoulder and rest this infant's body. This is a vigorous viable female infant Apgars are 7 and 9 delivery time is 0216 hours. The umbilical cord is quite short therefore it is doubly clamped and cut and the infant is late on the mother's abdomen. The placenta then takes approximately 30 minutes to deliver. Is delivered spontaneously and intact. I did inspect the placenta however and her multiple areas of what appear to be old hemorrhage. This is consistent with her first trimester bleeding. Placenta is sent to pathology. The placenta does appear to be intact and complete without defects. This done inspect perineum there is bilateral periurethral lacerations which were superficial therefore no sutures required. All counts are correct 3. There are no complications. Infant and mother are stable delivery room.
[2021-09-22] MEDS: IBUPROFEN 600 MG TAB PO PRN ×3 (04:25→19:46)
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
[2021-09-22] MEDS: SENNOSIDES-DOCUSATE SODIUM 1 EACH TAB PO SCH ×2 (08:22→19:46)
[2021-09-22] MEDS ORDERED: MEASLES-MUMPS-RUBELLA VACC/PF 12,500 UNIT/0.5 ML VIAL SQ ONE (16:42)
[2021-09-23 06:44] LABS: Basophils # (A) 0.1 k/uL (0-0.2); Basophils % (A) 1 %; Eosinophils # (A) 0.1 k/uL (0-0.7); Eosinophils % (A) 1 %; HCT 36.4 % (34.0-46.0); HGB 11.7 gm/dL (11.4-16.0); Lymphocytes # (A) 3.1 k/uL (1.0-4.8); Lymphocytes % (A) 24 %; MCHC 32.2 g/dL (31.0-37.0); MCV 93.1 fL (80.0-100.0); Mean Platelet Volume 7.7; Monocytes # (A) 0.4 k/uL (0-1.0); Monocytes % (A) 3 %; Neutrophils # (A) 9.1 k/uL (1.3-7.7); Neutrophils % (A) 71 %; Platelet Count 398 k/uL (150-450); RBC 3.91 m/uL (3.80-5.40); RDW 13.2 % (11.5-15.5); WBC 12.9 k/uL (3.8-10.6)
--- NOTE | 2021-09-23 07:23 | P.PNOBGVD ---
Subjective - Subjective Patient reports: Reports appetite normal, Reports voiding normally, Reports pain well controlled, Reports ambulating normally : doing well, in NICU Objective - Latest Vital Signs Latest vital signs: Vital Signs Temp Pulse Resp BP Pulse Ox 09/23/21 00:12 97.9 F 99 16 106/68 97 09/22/21 19:57 98.1 F 91 16 113/71 98 09/22/21 16:00 98.4 F 102 H 18 106/71 09/22/21 13:15 98.7 F 98 18 115/73 09/22/21 08:00 98.4 F 116 H 18 110/67 Intake and Output 09/22/21 09/23/21 09/23/21 22:59 06:59 14:59 Other: # Voids 1 2 - Exam Lungs: bilateral: normal Chest: Normal S1, Normal S2 Extremities: Present: normal Abdomen: Present: normal appearance, soft Uterus: Present: normal, firm - Labs Labs: Abnormal Lab Results - Last 24 Hours (Table) 09/23/21 Range/Units 06:33 WBC 12.9 H (3.8-10.6) k/uL Neutrophils # 9.1 H (1.3-7.7) k/uL Assessment and Plan Assessment: day #1. Patient is resting without new complaints. Vital signs are stable and she is afebrile. Her baby was having some low blood glucoses therefore is being watched in special care otherwise doing well. Baby will not be discharged home today therefore patient wishes to stay. Plan is to continue routine care and discharge home tomorrow (1) 36 to 37 weeks gestation of Current Visit: Yes Status: Acute Code(s): [id number] - SNOMED Code(s): 341697648 (2) Normal labor and delivery Current Visit: Yes Status: Acute Code(s): O80 - ENCOUNTER FOR FULL-TERM UNCOMPLICATED DELIVERY SNOMED Code(s): 04365882
[2021-09-23] MEDS: SENNOSIDES-DOCUSATE SODIUM 1 EACH TAB PO SCH ×2 (08:48→20:22)
[2021-09-23] MEDS: IBUPROFEN 600 MG TAB PO PRN ×2 (08:49→15:07)
[2021-09-23] MEDS: ACETAMINOPHEN TAB 325 MG TAB PO PRN ×2 (12:54→20:19)
[2021-09-24] MEDS: IBUPROFEN 600 MG TAB PO PRN (00:15)
[2021-09-24 00:32] VITALS: RESP 16
[2021-09-24] MEDS: ACETAMINOPHEN TAB 325 MG TAB PO PRN (08:04)
[2021-09-24] MEDS: SENNOSIDES-DOCUSATE SODIUM 1 EACH TAB PO SCH (08:04)
--- NOTE | 2021-09-24 08:38 | P.DS ---
Providers Date of admission: 09/22/21 01:41 Expected date of discharge: 09/24/21 Attending physician: Wilmar Hartley Primary care physician: Stated None Hospital Course: This is a 26-year-old female 2 para 0 at 36-6/7 weeks who presented in active labor. She delivered vaginally a viable female infant with scores of 7 at 1 minute and 9 at 5 minutes and weight of 5 lbs. 0 oz. on 09/22/2021. Her course is been essentially uncomplicated. She is working on breast-feeding. Lochia is decreasing. Pain is well-controlled. Vital signs are stable. Abdomen is soft with fundus firm and nontender. Extremities show negative Homans. Impression is status post vaginal delivery day #2. Plan is to discharge home today. Routine instructions are given. She is advised follow-up in the office in 6 weeks for check. She will be given a prescription for ibuprofen and a breast pump. She is advised to call the office if she has any further questions or concerns prior to her appointment time. Procedures: Spontaneous vaginal delivery of a viable female on 09/22/2021 Patient Condition at Discharge: Stable Plan - Discharge Summary Discharge Rx Participant: No New Discharge Prescriptions: New Ibuprofen [Motrin] 600 mg PO Q6HR PRN #60 tab PRN Reason: Mild Pain (Scale 1 To 3) Continue Pnv No.95/Ferrous Fum/Folic AC [ Multivitamin Tablet] 1 each PO DAILY Discharge Medication List Pnv No.95/Ferrous Fum/Folic AC [ Multivitamin Tablet] 1 each PO DAILY 11/09/20 [History] Ibuprofen [Motrin] 600 mg PO Q6HR PRN #60 tab 09/24/21 [Rx] Follow up Appointment(s)/Referral(s): Maryellen Luis DO [Doctor of Osteopathic Medicine] - 6 Weeks Activity/Diet/Wound Care/Special Instructions: Instructions 1. Do not begin any exercise program for 3 weeks. 2. Do not resume sexual relations for 3 weeks or longer if uncomfortable. 3. You may take tub baths or showers at any time. 4. You may use tampons if desired after 3 weeks. 5. Keep the area of episiotomy (stitches) clean and dry. 6. If you are not nursing, wear a good fitting, supportive bra during the day and limit fluid intake for at least 1 week to prevent breast engorgement. 7. Call the office, [phone], within the next week to make appointment for your 6 week checkup if it has not already been made. 8. Report any of the following occurrences to the doctor promptly: a. Heavy, excessive bleeding b. Chills, fever c. Burning or frequency of urination d. Pain or redness and breasts if nursing e. Increasing pain or swelling in episiotomy (stitches). In addition to the above instructions, the following additional should be followed: 1. No heavy lifting or straining (exercising) until after 6 week checkup. 2. Keep abdominal incision clean and dry: You may wear a dressing if more comfortable. 3. Make office appointment for 10 days after going home or as instructed by her doctor. Discharge Disposition: HOME SELF-CARE
[2021-09-24 08:51] VITALS: BP 112/70; PULSE 100; TEMP 97.9
== END 2021-09-24 13:47 | disposition home or self-care (01) | DRG 805 ==
LOC: FBPOP 01:15 → 4FBP 01:41
PROVIDERS: ADMIT Obstetrics & Gynecology; ATTEND Obstetrics & Gynecology
PROC: 10E0XZZ Delivery of Products of Conception, External Approach (ICD-10-PCS; principal; 2021-09-22)
PROC: 4A0HXCZ Measurement of Products of Conception, Cardiac Rate, External Approach (ICD-10-PCS; 2021-09-22)
DX: O62.3 Precipitate labor (principal); O60.14X0 Preterm labor third trimester with preterm delivery third trimester, not applicable or unspecified; Z37.0 Single live birth; O76 Abnormality in fetal heart rate and rhythm complicating labor and delivery; O71.82 Other specified trauma to perineum and vulva; Z3A.36 36 weeks gestation of pregnancy; Z90.49 Acquired absence of other specified parts of digestive tract
CPT/HCPCS: 84112; 85025; 86850; 86900; 86901; 88307; 90707; 99213